=== PATIENT | male | born 1945 | race African-American/Black ===

== ENCOUNTER → 2018-01-17 | Day surgery (SDC) | payer MEDICARE, BC ==
[~2018-01-17] MED LIST: ASPI-1159 PO; ASPI-864 PO; ASPI-867 PO; ATROPINE SULFATE 1MG/10ML SYR IV PRN; BRIM5DRO6 OP; CARV10CP PO; CLOP75TA15 PO; CLOP75TA16 PO; DIGO0.25 PO; DORZ10DR9 OP; FENTANYL CITRATE/PF 50MCG/ML 2ML VIAL ONE; LATA2.5D2 OP; LIDOCAINE HCL 1% 10 MG/ML 10ML VIAL ONE; LOSA25TA12 PO; MIDAZOLAM HCL 2 MG/2 ML VIAL ONE; ONDANSETRON HCL 4MG/2ML INJ IV PRN; ROSU20TA PO; SIMV20TA6 PO; SPIR25TA6 PO; TADA5TAB PO; [UNRECOGNIZED DRUG - OTHER] PO
[2018-01-17 08:24] LABS: HEMATOCRIT 43.5 % (42.0-52.0); HEMOGLOBIN 14.5 g/dL (14.0-18.0); MEAN CORPUSCULAR HEMOGLOBIN 29.7 pg (28.0-32.0); MEAN CORPUSCULAR VOLUME 89.2 fL (80.0-94.0); PLATELET 207 x1000/uL (130-400); RED BLOOD CELL COUNT 4.88 mill/uL (4.7-6.1); RED CELL DISTRIBUTION WIDTH 13.7 % (11.6-14.6)
[2018-01-17 08:28] LABS: INR 1.1; PROTHROMBIN TIME 10.8 sec (9.1-11.1)
[2018-01-17 08:29] LABS: CHLORIDE 105 mEq/L (98-107)
== END | disposition home or self-care (01) ==
LOC: CCL 07:13
PROVIDERS: ATTEND Internal Medicine Clinical Cardiac Electrophysiology
DX: I47.2 Ventricular tachycardia (principal); I25.5 Ischemic cardiomyopathy; I10 Essential (primary) hypertension; E11.9 Type 2 diabetes mellitus without complications; I25.10 Atherosclerotic heart disease of native coronary artery without angina pectoris; E78.5 Hyperlipidemia, unspecified; F17.200 Nicotine dependence, unspecified, uncomplicated; Z79.899 Other long term (current) drug therapy; Z79.82 Long term (current) use of aspirin; Z82.49 Family history of ischemic heart disease and other diseases of the circulatory system; Z95.5 Presence of coronary angioplasty implant and graft
CPT/HCPCS: 36415; 80048; 85027; 85610; 92960; 93005; 93620; 99152; 99153; C1730; C1893; J1644; J2250; J3010; J3490; J7030

== ENCOUNTER 2018-01-25 06:11 | Inpatient (IN) | payer MEDICARE, BC ==
[~2018-01-25] VITALS: Ht 177.8 cm; Wt 100.0 kg
[~2018-01-25 06:11] MED LIST changes: -ASPI-864 PO; -ASPI-867 PO; -ATROPINE SULFATE 1MG/10ML SYR IV PRN; -CLOP75TA15 PO; -FENTANYL CITRATE/PF 50MCG/ML 2ML VIAL ONE; -LIDOCAINE HCL 1% 10 MG/ML 10ML VIAL ONE; -MIDAZOLAM HCL 2 MG/2 ML VIAL ONE; -ONDANSETRON HCL 4MG/2ML INJ IV PRN; -[UNRECOGNIZED DRUG - OTHER] PO
[2018-01-25] MEDS ORDERED: IODIXANOL 320MG/ML 100 ML BOTTLE IV ONE (08:22)
[2018-01-25] MEDS ORDERED: LIDOCAINE HCL 1% 10 MG/ML 10ML VIAL ONE (08:22)
[2018-01-25] MEDS ORDERED: GENTAMICIN SULF 40MG/ML 2ML VIAL ONE (08:22)
[2018-01-25] MEDS ORDERED: GENTAMICIN/NS IRRIGATION 500 ML IR ONE (08:23)
[2018-01-25] MEDS ORDERED: EPHEDRINE SULFATE 50MG/ML VIAL ONE (08:59)
[2018-01-25] MEDS ORDERED: CEFAZOLIN SODIUM 1000MG/VIAL ONE (08:59)
[2018-01-25] MEDS ORDERED: PROPOFOL 200MG/20ML VIAL IV ONE (08:59)
[2018-01-25] MEDS ORDERED: FENTANYL CITRATE/PF 50MCG/ML 2ML VIAL ONE (08:59)
[2018-01-25] MEDS ORDERED: PHENYLEPHRINE HCL 10 MG/ML 1ML (IV VIAL) IV ONE (08:59)
[2018-01-25] MEDS ORDERED: MIDAZOLAM HCL 2 MG/2 ML VIAL ONE (08:59)
[2018-01-25] MEDS ORDERED: MEPERIDINE HCL/PF 25MG/ML CPJ IV PRN (11:00)
[2018-01-25] MEDS ORDERED: LABETALOL 5MG/ML SYR 20 MG/4 ML SYRINGE IV PRN (11:00)
[2018-01-25] MEDS ORDERED: HYDROMORPHONE HCL/PF 2MG/ML CPJ IV PRN (11:00)
[2018-01-25] MEDS ORDERED: ONDANSETRON HCL 4MG/2ML INJ IV PRN (11:00)
[2018-01-25] MEDS ORDERED: HYDROCODONE/ACETAMINOPHEN 5/325MG TABLET PO PRN (11:15)
[2018-01-25 13:45] VITALS: BP 147/76
[2018-01-25 14:14] VITALS: BP 147/76
[2018-01-25 16:00] VITALS: BP 116/71
[2018-01-25] MEDS ORDERED: CEFAZOLIN 1000MG PREMIX 50 ML IV SCH (16:30)
[2018-01-25 18:00] VITALS: BP 127/75
[2018-01-25 20:00] VITALS: BP 112/66
[2018-01-25] MEDS: CEFAZOLIN 1000MG PREMIX 50 ML IV SCH (20:06)
[2018-01-26] VITALS (9 sets, daily range): BP systolic 103–133; BP diastolic 57–76
[2018-01-26] MEDS: CEFAZOLIN 1000MG PREMIX 50 ML IV SCH (05:04)
[2018-01-26 07:24] LABS: BASOPHILS % 0.6 % (0.0-2.0); EOSINOPHILS % 2.1 % (0.0-5.0); HEMATOCRIT. 40.8 % (42.0-52.0); HEMOGLOBIN. 13.7 g/dL (14.0-18.0); LYMPHOCYTES % 25.9 % (20.0-50.0); MEAN CORPUSCULAR HEMOGLOBIN 29.7 pg (28.0-32.0); MEAN CORPUSCULAR VOLUME 88.7 fL (80.0-94.0); MEAN PLATELET VOLUME 9.2 fl (7.4-10.4); MONOCYTES % 9.3 % (2.0-8.0); NEUTROPHILS % 62.1 % (40.0-76.0); PLATELET 186 x1000/uL (130-400); RED BLOOD CELL COUNT 4.59 mill/uL (4.7-6.1); RED CELL DISTRIBUTION WIDTH 13.6 % (11.6-14.6)
[2018-01-26 07:49] LABS: CHLORIDE 105 mEq/L (98-107)
== END 2018-01-26 18:30 | disposition home or self-care (01) | DRG 225 ==
LOC: CCL 06:11 → 3WST 06:12
PROVIDERS: ADMIT Internal Medicine Clinical Cardiac Electrophysiology; ATTEND Internal Medicine Clinical Cardiac Electrophysiology
PROC: 02HK3KZ Insertion of Defibrillator Lead into Right Ventricle, Percutaneous Approach (ICD-10-PCS; 2018-01-25)
PROC: 4A023N6 Measurement of Cardiac Sampling and Pressure, Right Heart, Percutaneous Approach (ICD-10-PCS; 2018-01-25)
PROC: 02H63KZ Insertion of Defibrillator Lead into Right Atrium, Percutaneous Approach (ICD-10-PCS; 2018-01-25)
PROC: B5171ZZ Fluoroscopy of Left Subclavian Vein using Low Osmolar Contrast (ICD-10-PCS; 2018-01-25)
PROC: 4A023FZ Measurement of Cardiac Rhythm, Percutaneous Approach (ICD-10-PCS; 2018-01-25)
PROC: 4A0234Z Measurement of Cardiac Electrical Activity, Percutaneous Approach (ICD-10-PCS; 2018-01-25)
PROC: 0JH608Z Insertion of Defibrillator Generator into Chest Subcutaneous Tissue and Fascia, Open Approach (ICD-10-PCS; principal; 2018-01-25 08:00)
PROC: 5A09357 Assistance with Respiratory Ventilation, Less than 24 Consecutive Hours, Continuous Positive Airway Pressure (ICD-10-PCS; 2018-01-26)
DX: I47.2 Ventricular tachycardia (principal); I50.22 Chronic systolic (congestive) heart failure; I25.5 Ischemic cardiomyopathy; I11.0 Hypertensive heart disease with heart failure; E78.5 Hyperlipidemia, unspecified; E11.9 Type 2 diabetes mellitus without complications; I25.10 Atherosclerotic heart disease of native coronary artery without angina pectoris; I27.20 Pulmonary hypertension, unspecified; I25.2 Old myocardial infarction; Z95.5 Presence of coronary angioplasty implant and graft
CPT/HCPCS: 33249; 36415; 71045; 75820; 80048; 85025; 93005; 93451; 93640; C1721; C1892; C1893; C1898; C1899; J0690; J1580; J1644; J2250; J2370; J2704; J3010; J3490; J7040; J7050; Q9967

== ENCOUNTER 2019-07-04 08:07 | Day surgery (SDC) | payer MEDICARE, BC ==
[~2019-07-04 08:07] MED LIST changes: -ASPI-1159 PO; +ASPI-1497 PO; -BRIM5DRO6 OP; -CLOP75TA16 PO; +CLOP75TA4 PO; -DORZ10DR9 OP; -LATA2.5D2 OP; -LOSA25TA12 PO; +LOSA25TA26 PO; -ROSU20TA PO; +ROSU20TA2 PO; -SIMV20TA6 PO; -TADA5TAB PO
[2019-07-04] MEDS ORDERED: ICOS1CAP PO (09:37)
[2019-07-04] MEDS ORDERED: LIDOCAINE HCL 1% 20ML VIAL (Pyxis) INJ ONE (10:50)
[2019-07-04] MEDS ORDERED: IODIXANOL 320MG/ML 100 ML BOTTLE IV ONE (10:51)
[2019-07-04] MEDS ORDERED: ASPIRIN/SOD BICARB/CITRIC ACID 324MG TAB EFF ONE (10:51)
[2019-07-04] MEDS ORDERED: FENTANYL CITRATE/PF 50MCG/ML 2ML VIAL ONE (10:52)
[2019-07-04] MEDS ORDERED: MIDAZOLAM HCL 2 MG/2 ML VIAL ONE (10:52)
[2019-07-04] MEDS ORDERED: IOHEXOL-300 100 ML BOTTLE ONE (11:30)
[2019-07-04] MEDS ORDERED: ONDANSETRON HCL 4MG/2ML INJ IV PRN (12:15)
[2019-07-04] MEDS ORDERED: MORPHINE SULFATE 2 MG/ML CPJ (NOT FOR IM USE) IV PRN (12:15)
[2019-07-04] MEDS ORDERED: ATROPINE SULFATE 1MG/10ML SYR IV PRN (12:15)
[2019-07-04] MEDS ORDERED: ACETAMINOPHEN 325MG TABLET PO PRN (12:15)
[2019-07-04] MEDS ORDERED: HEPARIN SODIUM 1,000 UNIT/1ML VIAL IV ONE (13:37)
[2019-07-04] MEDS ORDERED: NITROGLYCERIN 50MCG/ML 10ML VIAL (CATH LAB) IV ONE (13:37)
[2019-07-04] MEDS ORDERED: NICARDIPINE 100MCG/ML 10ML VIAL (CATH LAB) IV ONE (13:37)
== END 2019-07-04 17:10 | disposition home or self-care (01) ==
LOC: CCL 08:07
PROVIDERS: ATTEND Specialist
DX: I25.10 Atherosclerotic heart disease of native coronary artery without angina pectoris (principal); I10 Essential (primary) hypertension; E78.5 Hyperlipidemia, unspecified; I73.9 Peripheral vascular disease, unspecified; Z79.82 Long term (current) use of aspirin; Z79.899 Other long term (current) drug therapy; Z98.890 Other specified postprocedural states; Z98.61 Coronary angioplasty status; Z95.810 Presence of automatic (implantable) cardiac defibrillator; Z82.49 Family history of ischemic heart disease and other diseases of the circulatory system
CPT/HCPCS: 85347; 92978; 93458; 93571; 93572; 99152; 99153; C1753; C1769; C1887; C1893; J1644; J2250; J3010; J3490; Q9967; G0500

== ENCOUNTER 2020-02-06 06:27 | Inpatient (IN) | payer BC, MEDICARE ==
[~2020-02-06] VITALS: Ht 177.8 cm; Wt 101.2 kg
[~2020-02-06 06:27] MED LIST changes: +ICOS1CAP PO
[2020-02-06] MEDS ORDERED: MORPHINE SULFATE 4 MG/ML CPJ (NOT FOR IM USE) IV STA (07:08)
[2020-02-06] MEDS ORDERED: ASPIRIN 81MG TABLET PO ONE (07:15)
[2020-02-06 07:37] LABS: EOSINOPHILS % 3.7 % (0.0-5.0); HEMATOCRIT. 43.9 % (42.0-52.0); HEMOGLOBIN. 14.7 g/dL (14.0-18.0); LYMPHOCYTES % 28.4 % (20.0-50.0); MEAN CORPUSCULAR HEMOGLOBIN 29.7 pg (28.0-32.0); MEAN PLATELET VOLUME 8.9 fl (7.4-10.4); MONOCYTES % 7.7 % (2.0-8.0); NEUTROPHILS % 59.2 % (40.0-76.0); PLATELET 198 x1000/uL (130-400); RED BLOOD CELL COUNT 4.94 mill/uL (4.7-6.1); RED CELL DISTRIBUTION WIDTH 14.1 % (11.6-14.6)
[2020-02-06 07:41] LABS: CHLORIDE 106 mEq/L (98-107)
[2020-02-06] MEDS ORDERED: SODIUM CHLORIDE 0.45% 500 ML IV ONE ×2 (11:15→16:30)
[2020-02-06 11:38] VITALS: BP 118/67
[2020-02-06] MEDS ORDERED: HEPARIN SODIUM 1,000 UNIT/1ML VIAL IV ONE (13:15)
[2020-02-06] MEDS ORDERED: MAGNESIUM/ALUMINUM HYDROXIDE/SIMETHICONE 30ML UDC PO PRN (14:00)
[2020-02-06] MEDS ORDERED: ACETAMINOPHEN 650MG SUPP PR PRN (14:00)
[2020-02-06] MEDS ORDERED: CLONIDINE 0.1MG TABLET PO PRN (14:00)
[2020-02-06 14:24] LABS: PARTIAL THROMBOPLASTIN TIME 31.7 sec (23.4-31.0)
[2020-02-06] MEDS ORDERED: FENTANYL CITRATE/PF 50MCG/ML 2ML VIAL ONE (14:35)
[2020-02-06] MEDS ORDERED: LIDOCAINE HCL 1% 20ML VIAL (Pyxis) INJ ONE (14:35)
[2020-02-06] MEDS ORDERED: MIDAZOLAM HCL 2 MG/2 ML VIAL ONE (14:38)
[2020-02-06] MEDS ORDERED: IOHEXOL-300 100 ML BOTTLE ONE (14:39)
[2020-02-06] MEDS ORDERED: IODIXANOL 320MG/ML 200ML BOTTLE ONE (14:39)
[2020-02-06] MEDS ORDERED: METOPROLOL TARTRATE 5MG/5ML VIAL IV ONE (15:41)
[2020-02-06] MEDS ORDERED: ATROPINE SULFATE 1MG/10ML SYR IV PRN (16:00)
[2020-02-06] MEDS ORDERED: MORPHINE SULFATE 2 MG/ML CPJ (NOT FOR IM USE) IV PRN (16:00)
[2020-02-06] MEDS ORDERED: ACETAMINOPHEN 325MG TABLET PO PRN (16:00)
[2020-02-06 16:21] VITALS: BP 97/57
[2020-02-06 16:57] VITALS: BP 98/58
[2020-02-06] MEDS: LOSARTAN POTASSIUM 25 MG TABLET PO SCH (17:00)
[2020-02-06] MEDS: SPIRONOLACTONE 25MG TABLET PO SCH (17:08)
[2020-02-06 17:28] VITALS: BP 111/59
[2020-02-06] MEDS ORDERED: FURO-151 PO (17:34)
[2020-02-06] MEDS ORDERED: OMEG100016 MT (17:39)
[2020-02-06] MEDS ORDERED: COR6 PO (17:39)
[2020-02-06] MEDS ORDERED: COR12 PO (17:39)
[2020-02-06] MEDS: CARVEDILOL 12.5MG TABLET PO SCH (21:00)
[2020-02-06 22:00] VITALS: BP 101/59
[2020-02-07] VITALS (8 sets, daily range): BP systolic 105–122; BP diastolic 59–72
[2020-02-07 07:05] LABS: CHLORIDE 107 mEq/L (98-107)
[2020-02-07 07:09] LABS: BASOPHILS % 0.9 % (0.0-2.0); EOSINOPHILS % 4.2 % (0.0-5.0); HEMATOCRIT. 41.9 % (42.0-52.0); LYMPHOCYTES % 33.6 % (20.0-50.0); MEAN CORPUSCULAR HEMOGLOBIN 29.4 pg (28.0-32.0); MEAN CORPUSCULAR VOLUME 88.2 fL (80.0-94.0); MEAN PLATELET VOLUME 9.2 fl (7.4-10.4); MONOCYTES % 9.5 % (2.0-8.0); NEUTROPHILS % 51.8 % (40.0-76.0); PLATELET 191 x1000/uL (130-400); RED BLOOD CELL COUNT 4.76 mill/uL (4.7-6.1); RED CELL DISTRIBUTION WIDTH 14.2 % (11.6-14.6)
[2020-02-07] MEDS: CARVEDILOL 12.5MG TABLET PO SCH (08:55)
[2020-02-07] MEDS: LOSARTAN POTASSIUM 25 MG TABLET PO SCH (08:55)
[2020-02-07] MEDS: SPIRONOLACTONE 25MG TABLET PO SCH (08:56)
[2020-02-07] MEDS ORDERED: ASPIRIN 81MG EC TABLET PO SCH (09:00)
[2020-02-07] MEDS ORDERED: CLOPIDOGREL 75MG TABLET PO SCH (09:00)
[2020-02-07] MEDS ORDERED: COR12 PO (09:35)
== END 2020-02-07 13:40 | disposition home or self-care (01) | DRG 287 ==
LOC: ER 06:27 → 5WST 08:14 → ENRESERV 09:53 → ER 11:36 → 3WST 16:04
PROVIDERS: ADMIT Specialist; ATTEND Specialist
PROC: 4A023N7 Measurement of Cardiac Sampling and Pressure, Left Heart, Percutaneous Approach (ICD-10-PCS; principal; 2020-02-06)
PROC: B2111ZZ Fluoroscopy of Multiple Coronary Arteries using Low Osmolar Contrast (ICD-10-PCS; 2020-02-06)
PROC: B2131ZZ Fluoroscopy of Multiple Coronary Artery Bypass Grafts using Low Osmolar Contrast (ICD-10-PCS; 2020-02-06)
DX: I25.119 Atherosclerotic heart disease of native coronary artery with unspecified angina pectoris (principal); I25.5 Ischemic cardiomyopathy; E78.00 Pure hypercholesterolemia, unspecified; E78.5 Hyperlipidemia, unspecified; Z79.82 Long term (current) use of aspirin; Z79.02 Long term (current) use of antithrombotics/antiplatelets; Z79.899 Other long term (current) drug therapy; Z87.891 Personal history of nicotine dependence; Z95.5 Presence of coronary angioplasty implant and graft; Z95.1 Presence of aortocoronary bypass graft; Z95.810 Presence of automatic (implantable) cardiac defibrillator
CPT/HCPCS: 36415; 71045; 80048; 80053; 83880; 84484; 85025; 87426; 93005; 93459; 99285; C1769; C1887; C1893; J1644; J2250; J3010; J3490; Q9967

== ENCOUNTER 2022-05-18 12:34 | Inpatient (IN) | payer BC, MEDICARE ==
[~2022-05-18] VITALS: Ht 177.8 cm; Wt 87.5 kg
[~2022-05-18 12:34] MED LIST changes: -CARV10CP PO; +CLOP-31 PO; -CLOP75TA4 PO; +COR12 PO; -DIGO0.25 PO; +FURO-151 PO; +OMEG100016 MT
[2022-05-18] MEDS ORDERED: FUROSEMIDE 40MG/4ML VIAL IV ONE (14:00)
[2022-05-18] MEDS ORDERED: ASPIRIN 81MG TABLET PO ONE (14:00)
[2022-05-18 15:02] LABS: BASOPHILS % 0.5 % (0.0-2.0); EOSINOPHILS % 2.7 % (0.0-5.0); HEMATOCRIT. 44.6 % (42.0-52.0); HEMOGLOBIN. 15.1 g/dL (14.0-18.0); LYMPHOCYTES % 29.5 % (20.0-50.0); MEAN CORPUSCULAR HEMOGLOBIN 30.1 pg (28.0-32.0); MEAN PLATELET VOLUME 9.5 fl (7.4-10.4); MONOCYTES % 8.5 % (2.0-8.0); NEUTROPHILS % 58.8 % (40.0-76.0); PLATELET 221 x1000/uL (130-400); RED BLOOD CELL COUNT 5.01 mill/uL (4.7-6.1); RED CELL DISTRIBUTION WIDTH 13.8 % (11.6-14.6)
[2022-05-18 15:06] LABS: PROTHROMBIN TIME 10.9 sec (9.6-11.0)
[2022-05-18 15:10] LABS: CHLORIDE 99 mEq/L (98-107)
[2022-05-18] MEDS ORDERED: FUROSEMIDE 40MG/4ML VIAL IVP NR ×2 (15:45→16:30)
[2022-05-18] MEDS ORDERED: METOLAZONE 2.5MG TABLET PO NR (16:00)
[2022-05-18] MEDS ORDERED: GUAIFENESIN 200MG/10ML SUGAR FREE UDC PO PRN (19:00)
[2022-05-18] MEDS ORDERED: NALOXONE HCL 0.4MG/ML VIAL IV PRN (19:00)
[2022-05-18] MEDS ORDERED: ACETAMINOPHEN 325MG TABLET PO PRN (19:00)
[2022-05-18] MEDS ORDERED: DOCUSATE SODIUM 100MG CAPSULE PO PRN (19:00)
[2022-05-18] MEDS ORDERED: MAGNESIUM/ALUMINUM HYDROXIDE/SIMETHICONE 30ML UDC PO PRN (19:00)
[2022-05-18] MEDS ORDERED: ONDANSETRON HCL 4MG/2ML INJ IV PRN (19:00)
[2022-05-18] MEDS ORDERED: TRAMADOL 50MG TABLET PO PRN (19:00)
[2022-05-18 19:30] LABS: CLARITY URINE CLEAR (CLEAR); COLOR URINE YELLOW (YELLOW); KETONES URINE NEGATIVE (NEGATIVE); LEUKOCYTE ESTERASE URINE NEGATIVE (NEGATIVE); NITRITE URINE NEGATIVE (NEGATIVE); OCCULT BLOOD URINE NEGATIVE (NEGATIVE); PH URINE 6.5 (4.5-8.0); PROTEIN URINE NEGATIVE (NEGATIVE); SPECIFIC GRAVITY URINE 1.006 (1.005-1.030); UROBILINOGEN URINE 0.2 E.U./dL (0.2-1.0)
[2022-05-18 19:41] LABS: *AMPHETAMINES SCREEN URINE NEGATIVE (NEGATIVE); *BARBITURATES SCREEN URINE NEGATIVE (NEGATIVE); *BENZODIAZEPINES SCREEN URINE NEGATIVE (NEGATIVE); *COCAINE SCREEN URINE NEGATIVE (NEGATIVE); CANNABINOID URINE SCREEN NEGATIVE (NEGATIVE); METHADONE URINE SCREEN NEGATIVE (NEGATIVE); OPIATES URINE SCREEN NEGATIVE (NEGATIVE); PHENCYCLIDINE URINE SCREEN NEGATIVE (NEGATIVE)
[2022-05-18] MEDS: CARVEDILOL 12.5MG TABLET PO SCH (21:00)
[2022-05-19] VITALS: BP 114/58
[2022-05-19 04:04] VITALS: BP 109/58
[2022-05-19 07:43] LABS: CHLORIDE 103 mEq/L (98-107)
[2022-05-19 07:45] LABS: BASOPHILS % 0.8 % (0.0-2.0); EOSINOPHILS % 4.9 % (0.0-5.0); HEMATOCRIT. 41.3 % (42.0-52.0); LYMPHOCYTES % 35.1 % (20.0-50.0); MEAN CORPUSCULAR HEMOGLOBIN 30.5 pg (28.0-32.0); MEAN CORPUSCULAR VOLUME 90.2 fL (80.0-94.0); MEAN PLATELET VOLUME 9.3 fl (7.4-10.4); MONOCYTES % 10.6 % (2.0-8.0); NEUTROPHILS % 48.6 % (40.0-76.0); PLATELET 183 x1000/uL (130-400); RED BLOOD CELL COUNT 4.58 mill/uL (4.7-6.1); RED CELL DISTRIBUTION WIDTH 13.7 % (11.6-14.6)
[2022-05-19 08:00] VITALS: BP 115/53
[2022-05-19] MEDS ORDERED: IODIXANOL 320MG/ML 100 ML BOTTLE IV ONE (08:08)
[2022-05-19] MEDS ORDERED: HEPARIN 1000 UNITS/ML 10ML ONE (08:08)
[2022-05-19] MEDS ORDERED: ASPIRIN/SOD BICARB/CITRIC ACID 324MG TAB EFF ONE (08:08)
[2022-05-19] MEDS ORDERED: FENTANYL CITRATE/PF 50MCG/ML 2ML VIAL ONE (08:30)
[2022-05-19] MEDS ORDERED: MIDAZOLAM HCL 2 MG/2 ML VIAL ONE (08:30)
[2022-05-19] MEDS ORDERED: LIDOCAINE HCL/PF 1% 10 MG/ML 5ML VIAL ONE (08:31)
[2022-05-19] MEDS ORDERED: ASPIRIN 81MG EC TABLET PO SCH (09:00)
[2022-05-19] MEDS ORDERED: CLOPIDOGREL 75MG TABLET PO SCH (09:00)
[2022-05-19] MEDS ORDERED: MORPHINE SULFATE 2 MG/ML CPJ (NOT FOR IM USE) IV PRN (10:00)
[2022-05-19] MEDS ORDERED: ATROPINE SULFATE 1MG/10ML SYR IV PRN (10:00)
[2022-05-19] MEDS ORDERED: ACETAMINOPHEN 325MG TABLET PO PRN (10:00)
[2022-05-19] MEDS ORDERED: ONDANSETRON HCL 4MG/2ML INJ IV PRN (10:00)
[2022-05-19] MEDS ORDERED: SPIRONOLACTONE 25MG TABLET PO SCH (10:30)
[2022-05-19] MEDS ORDERED: SODIUM CHLORIDE 0.45% 400 ML IV ONE (10:30)
[2022-05-19] MEDS ORDERED: FUROSEMIDE 40MG/4ML VIAL IVP SCH (12:00)
[2022-05-19 14:00] VITALS: BP 116/64
[2022-05-19 16:00] VITALS: BP 131/50
[2022-05-19 20:00] VITALS: BP 116/64
[2022-05-19] MEDS: CARVEDILOL 12.5MG TABLET PO SCH (21:38)
[2022-05-20] VITALS: BP 115/59
[2022-05-20 04:00] VITALS: BP 112/80
[2022-05-20 07:14] LABS: BASOPHILS % 0.6 % (0.0-2.0); EOSINOPHILS % 3.3 % (0.0-5.0); HEMATOCRIT. 42.9 % (42.0-52.0); HEMOGLOBIN. 14.7 g/dL (14.0-18.0); LYMPHOCYTES % 31.5 % (20.0-50.0); MEAN CORPUSCULAR HEMOGLOBIN 30.4 pg (28.0-32.0); MEAN PLATELET VOLUME 9.2 fl (7.4-10.4); NEUTROPHILS % 55.6 % (40.0-76.0); PLATELET 211 x1000/uL (130-400); RED BLOOD CELL COUNT 4.82 mill/uL (4.7-6.1); RED CELL DISTRIBUTION WIDTH 13.8 % (11.6-14.6)
[2022-05-20 07:50] LABS: CHLORIDE 102 mEq/L (98-107)
[2022-05-20 07:51] VITALS: BP 101/53
[2022-05-20] MEDS: CARVEDILOL 12.5MG TABLET PO SCH (08:42)
[2022-05-20] MEDS ORDERED: FUROSEMIDE 40MG/4ML VIAL IVP SCH (10:00)
[2022-05-20] MEDS ORDERED: FURO40TA5 PO (10:13)
[2022-05-20 10:15] VITALS: BP 107/55
[2022-05-20 12:00] VITALS: BP 104/56
== END 2022-05-20 12:20 | disposition home or self-care (01) | DRG 286 ==
LOC: ER 12:34 → 8WST 17:17 → EDBEDREQ 17:17 → EDBEDREQTM 17:17 → ENRESERV 19:36
PROVIDERS: ADMIT Hospitalist; ATTEND Hospitalist
PROC: B2111ZZ Fluoroscopy of Multiple Coronary Arteries using Low Osmolar Contrast (ICD-10-PCS; principal; 2022-05-19)
PROC: 4A023N7 Measurement of Cardiac Sampling and Pressure, Left Heart, Percutaneous Approach (ICD-10-PCS; 2022-05-19)
PROC: B2121ZZ Fluoroscopy of Single Coronary Artery Bypass Graft using Low Osmolar Contrast (ICD-10-PCS; 2022-05-19)
DX: I11.0 Hypertensive heart disease with heart failure (principal); I50.23 Acute on chronic systolic (congestive) heart failure; I25.10 Atherosclerotic heart disease of native coronary artery without angina pectoris; I25.5 Ischemic cardiomyopathy; E78.00 Pure hypercholesterolemia, unspecified; E78.5 Hyperlipidemia, unspecified; Z20.822 Contact with and (suspected) exposure to COVID-19; I70.209 Unspecified atherosclerosis of native arteries of extremities, unspecified extremity; E11.51 Type 2 diabetes mellitus with diabetic peripheral angiopathy without gangrene; I35.1 Nonrheumatic aortic (valve) insufficiency; I34.0 Nonrheumatic mitral (valve) insufficiency; I25.82 Chronic total occlusion of coronary artery; Z79.82 Long term (current) use of aspirin; Z79.899 Other long term (current) drug therapy; Z95.1 Presence of aortocoronary bypass graft; Z95.810 Presence of automatic (implantable) cardiac defibrillator; Z79.02 Long term (current) use of antithrombotics/antiplatelets
CPT/HCPCS: 36415; 71045; 80048; 80053; 80305; 81003; 83880; 84484; 85025; 87426; 93005; 93459; 93970; 99285; C1769; C1887; C1893; J1644; J1940; J2250; J3010; J3490; Q9967

== ENCOUNTER 2024-10-04 13:50 | Inpatient (IN) | payer MEDICARE, OTHER ==
[~2024-10-04] VITALS: Ht 177.8 cm; Wt 87.8 kg
[~2024-10-04 13:50] MED LIST changes: +AMIO100T4 PO; +CHOL200059; +DORZ10DR8 EACHEYE; -FURO-151 PO; +FURO40TA5 PO; -ICOS1CAP PO; -LOSA25TA26 PO; +MEX150 PO; -OMEG100016 MT; +SACU1TAB MT
[2024-10-04 14:59] LABS: EOSINOPHILS % 2.1 % (0.0-5.0); HEMATOCRIT. 47.5 % (42.0-52.0); HEMOGLOBIN. 15.5 g/dL (14.0-18.0); LYMPHOCYTES % 14.5 % (20.0-50.0); MEAN CORPUSCULAR HEMOGLOBIN 30.3 pg (28.0-32.0); MEAN CORPUSCULAR HGB CONC 32.6 g/dL (31.0-37.0); MEAN CORPUSCULAR VOLUME 92.8 fL (80.0-94.0); MEAN PLATELET VOLUME 9.1 fl (7.4-10.4); MONOCYTES % 10.1 % (2.0-8.0); NEUTROPHILS % 72.3 % (40.0-76.0); PLATELET 221 x1000/uL (130-400); RED BLOOD CELL COUNT 5.12 mill/uL (4.7-6.1); RED CELL DISTRIBUTION WIDTH 14.8 % (11.6-14.6); WHITE BLOOD COUNT 6.3 x1000/uL (4.5-11.0)
[2024-10-04 15:02] LABS: CARBON DIOXIDE 21 mEq/L (21-32); CHLORIDE 109 mEq/L (98-107); POTASSIUM 4.1 mEq/L (3.5-5.1); SODIUM 139 mEq/L (136-145)
[2024-10-04 15:03] LABS: CALCIUM 9.3 mg/dL (8.7-10.4)
[2024-10-04 15:07] LABS: CREATININE 1.9 mg/dL (0.6-1.3)
[2024-10-04 15:08] LABS: GLUCOSE 184 mg/dL (70-105); UREA NITROGEN BLOOD 21 mg/dL (9-23)
[2024-10-04 15:09] LABS: ALANINE AMINOTRANSFERASE 56 IU/L (10-49); ALBUMIN 3.8 g/dL (3.2-4.8); ASPARTATE AMINOTRANSFERASE 43 IU/L (<34)
[2024-10-04 15:10] LABS: BILIRUBIN DIRECT 0.3 mg/dL (<=3.0); BILIRUBIN TOTAL 0.9 mg/dL (0.1-1.0); INR 1.3; PARTIAL THROMBOPLASTIN TIME 34.5 sec (23.4-31.0); PROTEIN TOTAL 5.9 g/dL (6.0-8.3); PROTHROMBIN TIME 13.2 sec (9.6-11.0); TROPONIN I HIGH SENSITIVITY 31 ng/L (3.0-53)
[2024-10-04] MEDS: ASPIRIN 81MG EC TABLET PO SCH (15:28)
[2024-10-04 15:30] LABS: CLARITY URINE CLEAR (CLEAR); COLOR URINE YELLOW (YELLOW); GLUCOSE URINE 3+ (NEGATIVE); KETONES URINE NEGATIVE (NEGATIVE); LEUKOCYTE ESTERASE URINE NEGATIVE (NEGATIVE); NITRITE URINE NEGATIVE (NEGATIVE); OCCULT BLOOD URINE NEGATIVE (NEGATIVE); PH URINE 5.5 (4.5-8.0); PROTEIN URINE 1+ (NEGATIVE); SPECIFIC GRAVITY URINE 1.021 (1.005-1.030)
[2024-10-04] MEDS ORDERED: ONDANSETRON HCL 4MG/2ML INJ IV PRN (15:30)
[2024-10-04] MEDS ORDERED: DIPHENHYDRAMINE 50MG/ML VIAL IV PRN (15:30)
[2024-10-04] MEDS ORDERED: MAGNESIUM/ALUMINUM HYDROXIDE/SIMETHICONE 30ML UDC PO PRN (15:30)
[2024-10-04] MEDS ORDERED: ACETAMINOPHEN 325MG TABLET PO PRN ×2 (15:30)
[2024-10-04] MEDS ORDERED: DEXTROSE 50% WATER 50ML SYRINGE IV PRN (15:30)
[2024-10-04] MEDS ORDERED: CLONIDINE 0.1MG TABLET PO PRN (15:30)
[2024-10-04] MEDS ORDERED: GUAIFENESIN 200MG/10ML SUGAR FREE UDC PO PRN (15:30)
[2024-10-04 15:38] LABS: WBC URINE 0-2 /hpf (0-2)
[2024-10-04 15:39] LABS: BACTERIA URINE TRACE; RBC URINE 0-2 /hpf (0-2); SQUAMOUS EPITHELIAL CELL URINE 1+ /lpf (RARE/1+)
[2024-10-04] MEDS: IOHEXOL-350 100 ML BOTTLE ONE (17:14)
[2024-10-04] MEDS: AMIODARONE 200MG TABLET PO SCH (17:30)
[2024-10-04] MEDS: INSULIN LISPRO 100 UNITS/ML SUBCUT SCH (18:00)
[2024-10-04] MEDS: BLOOD SUGAR DIAGNOSTIC STRIP TEST SCH (18:00)
[2024-10-04] MEDS: FUROSEMIDE 40MG/4ML VIAL IVP SCH (18:04)
[2024-10-04 20:00] VITALS: BP 115/59; PULSE 72; RESP 20; TEMP 35.6; O2SAT 100
[2024-10-04] MEDS ORDERED: ZOLPIDEM TARTRATE 5MG TABLET PO PRN (20:00)
[2024-10-04] MEDS: CARVEDILOL 6.25 MG TABLET PO SCH (21:00)
[2024-10-04] MEDS: APIXABAN 5 MG TABLET PO SCH (22:47)
[2024-10-04] MEDS: SODIUM CHLORIDE 0.9% 3ML FLUSH IVF SCH (23:03)
[2024-10-05] VITALS (7 sets, daily range): BP systolic 90–112; BP diastolic 44–75; PULSE 67–74; RESP 16–20; TEMP 35.7–36.6; O2SAT 96–99
[2024-10-05 06:31] LABS: BASOPHILS % 0.6 % (0.0-2.0); EOSINOPHILS % 2.2 % (0.0-5.0); HEMATOCRIT. 45.4 % (42.0-52.0); HEMOGLOBIN. 14.9 g/dL (14.0-18.0); LYMPHOCYTES % 20.2 % (20.0-50.0); MEAN CORPUSCULAR HEMOGLOBIN 30.2 pg (28.0-32.0); MEAN CORPUSCULAR HGB CONC 32.7 g/dL (31.0-37.0); MEAN CORPUSCULAR VOLUME 92.2 fL (80.0-94.0); MEAN PLATELET VOLUME 9.1 fl (7.4-10.4); MONOCYTES % 13.8 % (2.0-8.0); NEUTROPHILS % 63.2 % (40.0-76.0); PLATELET 196 x1000/uL (130-400); RED BLOOD CELL COUNT 4.92 mill/uL (4.7-6.1); RED CELL DISTRIBUTION WIDTH 14.5 % (11.6-14.6)
[2024-10-05 06:51] LABS: CARBON DIOXIDE 26 mEq/L (21-32); CHLORIDE 108 mEq/L (98-107); POTASSIUM 3.5 mEq/L (3.5-5.1); SODIUM 143 mEq/L (136-145)
[2024-10-05 06:52] LABS: CALCIUM 9.1 mg/dL (8.7-10.4)
[2024-10-05 06:56] LABS: CREATININE 1.7 mg/dL (0.6-1.3); GLUCOSE 92 mg/dL (70-105)
[2024-10-05 06:57] LABS: UREA NITROGEN BLOOD 21 mg/dL (9-23)
[2024-10-05 06:58] LABS: ALANINE AMINOTRANSFERASE 46 IU/L (10-49); ALBUMIN 3.3 g/dL (3.2-4.8); ASPARTATE AMINOTRANSFERASE 31 IU/L (<34); THYROID STIMULATING HORMONE 3.03 uIU/mL (0.55-4.78)
[2024-10-05 06:59] LABS: BILIRUBIN DIRECT 0.3 mg/dL (<=3.0); BILIRUBIN TOTAL 0.9 mg/dL (0.1-1.0); PROTEIN TOTAL 5.4 g/dL (6.0-8.3)
[2024-10-05] MEDS ORDERED: LEVOTHYROXINE SODIUM 50MCG TABLET PO SCH (07:50)
[2024-10-05] MEDS: SPIRONOLACTONE 25MG TABLET PO SCH ×2 (09:20→23:49)
[2024-10-05] MEDS: LEVOTHYROXINE SODIUM 50MCG TABLET PO SCH (09:21)
[2024-10-05] MEDS: EMPAGLIFLOZIN 10MG TABLET PO SCH ×2 (09:22→23:49)
[2024-10-05] MEDS: FUROSEMIDE 40MG/4ML VIAL IVP NR (12:24)
[2024-10-05] MEDS: MEXILETINE HCL 150MG CAPSULE PO SCH ×3 (12:24→23:50)
[2024-10-05] MEDS: BLOOD SUGAR DIAGNOSTIC STRIP TEST SCH (21:20)
[2024-10-05] MEDS: MAGNESIUM 1 G PREMIX 100 ML IV NR (23:15)
[2024-10-06] VITALS: BP 112/70; PULSE 95; RESP 21; TEMP 35.9; O2SAT 99
[2024-10-06 04:00] VITALS: BP 141/60; PULSE 72; RESP 20; TEMP 35.6; O2SAT 96
[2024-10-06] MEDS: LEVOTHYROXINE SODIUM 100MCG TABLET PO SCH (07:34)
[2024-10-06 08:00] VITALS: BP 122/68; PULSE 62; RESP 19; TEMP 35.9; O2SAT 98
[2024-10-06 11:53] LABS: BASOPHILS % 0.7 % (0.0-2.0); EOSINOPHILS % 0.8 % (0.0-5.0); HEMOGLOBIN. 16.8 g/dL (14.0-18.0); LYMPHOCYTES % 18.7 % (20.0-50.0); MEAN CORPUSCULAR HEMOGLOBIN 30.4 pg (28.0-32.0); MEAN CORPUSCULAR HGB CONC 32.2 g/dL (31.0-37.0); MEAN CORPUSCULAR VOLUME 94.3 fL (80.0-94.0); MEAN PLATELET VOLUME 9.1 fl (7.4-10.4); MONOCYTES % 11.5 % (2.0-8.0); NEUTROPHILS % 68.3 % (40.0-76.0); PLATELET 191 x1000/uL (130-400); RED BLOOD CELL COUNT 5.52 mill/uL (4.7-6.1); RED CELL DISTRIBUTION WIDTH 14.6 % (11.6-14.6); WHITE BLOOD COUNT 6.5 x1000/uL (4.5-11.0)
[2024-10-06 12:00] VITALS: BP 104/68; PULSE 69; RESP 15; TEMP 36.1; O2SAT 99
[2024-10-06 12:05] LABS: CHLORIDE 103 mEq/L (98-107); POTASSIUM 4.1 mEq/L (3.5-5.1); SODIUM 138 mEq/L (136-145)
[2024-10-06 12:06] LABS: CALCIUM 9.3 mg/dL (8.7-10.4); CARBON DIOXIDE 25 mEq/L (21-32)
[2024-10-06 12:11] LABS: CREATININE 1.7 mg/dL (0.6-1.3); GLUCOSE 135 mg/dL (70-105)
[2024-10-06 12:12] LABS: UREA NITROGEN BLOOD 20 mg/dL (9-23)
[2024-10-06] MEDS: BLOOD SUGAR DIAGNOSTIC STRIP TEST SCH (12:20)
[2024-10-06] MEDS: SACUBITRIL/VALSARTAN 24MG/26MG TABLET PO SCH (15:52)
[2024-10-06] MEDS: FUROSEMIDE 40MG/4ML VIAL IVP SCH (15:53)
[2024-10-06 16:00] VITALS: BP 122/73; PULSE 74; RESP 16; TEMP 36.3; O2SAT 95
[2024-10-06 20:00] VITALS: BP 125/62; PULSE 68; RESP 19; TEMP 36.1; O2SAT 98
[2024-10-06] MEDS: EMPAGLIFLOZIN 10MG TABLET PO SCH (21:37)
[2024-10-07] VITALS: BP 104/70; PULSE 87; RESP 20; TEMP 35.7; O2SAT 98
[2024-10-07 04:00] VITALS: BP 104/61; PULSE 70; RESP 20; TEMP 36.3; O2SAT 99
[2024-10-07] MEDS: FUROSEMIDE 40MG/4 ML UDC PO SCH (06:47)
[2024-10-07 08:00] VITALS: BP 105/58; PULSE 66; RESP 17; TEMP 36.2; O2SAT 100
[2024-10-07 11:41] LABS: BASOPHILS % 0.6 % (0.0-2.0); EOSINOPHILS % 2.1 % (0.0-5.0); HEMATOCRIT. 46.9 % (42.0-52.0); HEMOGLOBIN. 15.6 g/dL (14.0-18.0); LYMPHOCYTES % 13.3 % (20.0-50.0); MEAN CORPUSCULAR HEMOGLOBIN 30.7 pg (28.0-32.0); MEAN CORPUSCULAR HGB CONC 33.4 g/dL (31.0-37.0); MEAN PLATELET VOLUME 9.1 fl (7.4-10.4); MONOCYTES % 9.9 % (2.0-8.0); NEUTROPHILS % 74.1 % (40.0-76.0); PLATELET 208 x1000/uL (130-400); RED BLOOD CELL COUNT 5.09 mill/uL (4.7-6.1); RED CELL DISTRIBUTION WIDTH 14.7 % (11.6-14.6); WHITE BLOOD COUNT 5.8 x1000/uL (4.5-11.0)
[2024-10-07 11:51] LABS: CARBON DIOXIDE 27 mEq/L (21-32); CHLORIDE 106 mEq/L (98-107); POTASSIUM 3.7 mEq/L (3.5-5.1); SODIUM 140 mEq/L (136-145)
[2024-10-07 11:52] LABS: CALCIUM 8.9 mg/dL (8.7-10.4)
[2024-10-07 11:57] LABS: CREATININE 1.7 mg/dL (0.6-1.3); GLUCOSE 140 mg/dL (70-105); UREA NITROGEN BLOOD 24 mg/dL (9-23)
[2024-10-07 12:00] VITALS: BP 105/57; PULSE 69; RESP 15; TEMP 36.3; O2SAT 99
[2024-10-07 16:00] VITALS: BP 104/54; PULSE 58; RESP 17; TEMP 37; O2SAT 96
[2024-10-07] MEDS: DORZOLAMIDE 2% OPHTH 10 ML BOTTLE EACHEYE SCH (18:31)
[2024-10-07 20:00] VITALS: BP 105/55; PULSE 70; RESP 19; TEMP 36.6; O2SAT 100
[2024-10-08] VITALS: BP 94/51; PULSE 68; RESP 19; TEMP 35.9; O2SAT 93
[2024-10-08] MEDS: MEXILETINE HCL 150MG CAPSULE PO SCH (00:09)
[2024-10-08 04:00] VITALS: BP 92/45; PULSE 68; RESP 18; TEMP 36.1; O2SAT 96
[2024-10-08 08:00] VITALS: BP 110/50; PULSE 67; RESP 67; TEMP 36.5; O2SAT 98
[2024-10-08 12:00] VITALS: BP 133/58; PULSE 70; RESP 18; TEMP 36.6; O2SAT 98
[2024-10-08 16:00] VITALS: BP 101/45; PULSE 66; RESP 20; TEMP 36.6; O2SAT 97
[2024-10-08 20:00] VITALS: BP 107/58; PULSE 64; RESP 19; TEMP 36.5; O2SAT 98
[2024-10-09] VITALS: BP 92/42; PULSE 70; RESP 18; TEMP 36.2; O2SAT 100
[2024-10-09] MEDS ORDERED: DORZOLAMIDE 2% OPHTH 10 ML BOTTLE BOTHEYE SCH ×2 (00:15→16:00)
[2024-10-09 04:00] VITALS: BP 90/45; PULSE 109; RESP 19; TEMP 36.1; O2SAT 98
[2024-10-09 08:00] VITALS: BP 106/59; PULSE 68; RESP 16; TEMP 36.3; O2SAT 97
[2024-10-09] MEDS: DORZOLAMIDE 2% OPHTH 10 ML BOTTLE BOTHEYE SCH (09:08)
[2024-10-09 12:00] VITALS: BP 115/66; PULSE 70; RESP 18; TEMP 36.4; O2SAT 100
[2024-10-09 16:00] VITALS: BP 94/60; PULSE 68; RESP 17; TEMP 36.3; O2SAT 99
[2024-10-09 18:23] LABS: BASOPHILS % 0.7 % (0.0-2.0); EOSINOPHILS % 2.5 % (0.0-5.0); HEMATOCRIT. 50.9 % (42.0-52.0); HEMOGLOBIN. 16.1 g/dL (14.0-18.0); LYMPHOCYTES % 17.2 % (20.0-50.0); MEAN CORPUSCULAR HEMOGLOBIN 30.3 pg (28.0-32.0); MEAN CORPUSCULAR HGB CONC 31.7 g/dL (31.0-37.0); MEAN CORPUSCULAR VOLUME 95.6 fL (80.0-94.0); MEAN PLATELET VOLUME 8.9 fl (7.4-10.4); MONOCYTES % 10.8 % (2.0-8.0); NEUTROPHILS % 68.8 % (40.0-76.0); PLATELET 193 x1000/uL (130-400); RED BLOOD CELL COUNT 5.32 mill/uL (4.7-6.1); RED CELL DISTRIBUTION WIDTH 15.3 % (11.6-14.6); WHITE BLOOD COUNT 6.3 x1000/uL (4.5-11.0)
[2024-10-09 18:35] LABS: POTASSIUM 4.3 mEq/L (3.5-5.1)
[2024-10-09 18:36] LABS: CALCIUM 8.8 mg/dL (8.7-10.4)
[2024-10-09 18:41] LABS: CREATININE 1.4 mg/dL (0.6-1.3)
[2024-10-09 20:00] VITALS: BP 104/57; PULSE 67; RESP 20; TEMP 36.3; O2SAT 97
[2024-10-10] MEDS ORDERED: DORZOLAMIDE 2% OPHTH 10 ML BOTTLE BOTHEYE SCH
[2024-10-10 08:00] VITALS: BP 107/52; PULSE 61; RESP 16; TEMP 36.6; O2SAT 98
[2024-10-10 12:00] VITALS: BP 121/64; PULSE 70; RESP 17; TEMP 36.3; O2SAT 98
[2024-10-10] MEDS: FUROSEMIDE 40MG/4ML VIAL IVP NR (12:52)
[2024-10-10] MEDS: AMIODARONE 200MG TABLET PO NR (13:13)
[2024-10-10 16:00] VITALS: BP 105/51; PULSE 66; RESP 16; TEMP 36.6; O2SAT 97
[2024-10-10 17:05] VITALS: BP 116/63; PULSE 68; TEMP 97.3; O2SAT 97
[2024-10-10] MEDS ORDERED: EMPAGLIFLOZIN 25MG TABLET PO SCH (21:00)
[2024-10-10] MEDS ORDERED: SPIRONOLACTONE 25MG TABLET PO SCH (21:00)
[2024-10-11] MEDS ORDERED: AMIODARONE 200MG TABLET PO SCH (09:00)
== END 2024-10-10 17:30 | disposition home or self-care (01) | DRG 291 ==
LOC: ER 13:50 → EDBEDREQTM 18:07 → EDBEDREQ 18:07 → ENRESERV 19:00 → 6WST 20:11
PROVIDERS: ADMIT Internal Medicine; ATTEND Internal Medicine
DX: I11.0 Hypertensive heart disease with heart failure (principal); I50.23 Acute on chronic systolic (congestive) heart failure; I47.20 Ventricular tachycardia, unspecified; E03.9 Hypothyroidism, unspecified; I34.0 Nonrheumatic mitral (valve) insufficiency; E11.51 Type 2 diabetes mellitus with diabetic peripheral angiopathy without gangrene; I42.8 Other cardiomyopathies; E78.00 Pure hypercholesterolemia, unspecified; I49.3 Ventricular premature depolarization; I25.10 Atherosclerotic heart disease of native coronary artery without angina pectoris; I25.5 Ischemic cardiomyopathy; Z95.5 Presence of coronary angioplasty implant and graft; Z79.899 Other long term (current) drug therapy; Z79.84 Long term (current) use of oral hypoglycemic drugs; Z79.02 Long term (current) use of antithrombotics/antiplatelets; Z79.82 Long term (current) use of aspirin; Z95.810 Presence of automatic (implantable) cardiac defibrillator
CPT/HCPCS: 36415; 71045; 71275; 80048; 80076; 81003; 82962; 83036; 83735; 83880; 84443; 84484; 85025; 85379; 87426; 93005; 93306; 93970; 93971; 99285; A4606; J1815; J1940; J3475; Q9967